=== PATIENT | female | born 1945 | race Hispanic/Latino ===

== ENCOUNTER 2024-03-13 00:47 | Inpatient (IN) | payer OTHER ==
[2024-03-13] MEDS ORDERED: NA CHLORIDE 0.9% 1,000 ML ONE (00:55)
[2024-03-13] MEDS ORDERED: DIPHENHYDRAMINE 50 MG/ML VIAL ONE (00:55)
[2024-03-13] MEDS ORDERED: METOCLOPRAMIDE 10 MG/2mL INJ ONE (00:55)
[2024-03-13 01:35] LABS: Absolute Basophils 0.1 K/uL (0-0.5); Absolute Lymphocytes (CBC) 0.8 K/uL (0.7-4.9); Absolute Monocytes 0.5 K/uL (0.1-1.3); Absolute Neutrophil 3.9 K/uL (1.8-8.0); Basophils % 2.3 % (0-1.3); Eosinophils % 0.3 % (0-4.4); Hematocrit 35.7 % (36.0-45.0); Hemoglobin 12.2 g/dL (12.0-15.0); MCH 32.3 pg (27.0-35.0); MCV 94.8 fL (80-100); MPV 8.2 fL (7.6-11.3); Monocytes % 9.9 % (3.3-12.3); Neutrophils % 72.5 % (41.7-73.7); Nucleated Red Blood Cells % 0.1 % (0-0); Platelets 210 thou/uL (152-406); RBC Red Blood Cell Count 3.77 M/uL (3.86-4.86); Red Cell Distribution Width 13.5 % (12.1-15.2)
[2024-03-13 01:36] LABS: Anion Gap 12.7 mEq/L (5.0-15.0); Potassium 3.7 mEq/L (3.5-5.1)
--- NOTE | 2024-03-13 02:15 | ER ---
Nurse's Notes [facility] Name: Carmella Brandt Age: 78 yrs Sex: Female : 1945 Arrival Date: 03/13/2024 Time: 00:47 Bed 6 Private MD: Diagnosis: Hypo-osmolality and hyponatremia Presentation: 03/13 00:48 Chief complaint: Patient states: i have had a bad headache since yesterday and now i bm8 feel like throwing up. Coronavirus screen: Vaccine status: At this time, the client does not indicate any symptoms associated with coronavirus-19. Ebola Screen: Patient negative for fever greater than or equal to 101.5 degrees Fahrenheit, and additional compatible Ebola Virus Disease symptoms Patient denies exposure to infectious person. Patient denies travel to an Ebola-affected area in the 21 days before illness onset. No symptoms or risks identified at this time. Initial Sepsis Screen: Does the patient meet any 2 criteria? No. Patient's initial sepsis screen is negative. Does the patient have a suspected source of infection? No. Patient's initial sepsis screen is negative. Risk Assessment: Do you want to hurt yourself or someone else? Patient reports no desire to harm self or others. 00:48 Method Of Arrival: EMS: [facility] bm8 00:48 Onset of symptoms was March 11, 2024. bm8 00:48 Acuity: DAVID 3 bm8 Triage Assessment: 01:07 Headache History: The patient has had previous headaches and this one is similar to bm8 previous episodes. General: Appears in no apparent distress. uncomfortable, Behavior is calm, cooperative, appropriate for age. Pain: Complains of pain in HEAD Pain does not radiate. Pain currently is 8 out of 10 on a pain scale. Quality of pain is described as aching, Pain began 1 day ago. EENT: No deficits noted. No signs and/or symptoms were reported regarding the EENT system. Neuro: No deficits noted. Level of Consciousness is awake, alert, obeys commands, Oriented to person, place, time, situation, Appropriate for age Reports headache in entire. Cardiovascular: Denies chest pain, Capillary refill < 3 seconds in bilateral fingers toes Patient's skin is warm and dry. Respiratory: Airway is patent Respiratory effort is even, unlabored, Respiratory pattern is regular, symmetrical. GI: Reports nausea, vomiting. : No signs and/or symptoms were reported regarding the genitourinary system. Derm: No signs and/or symptoms reported regarding the dermatologic system. Musculoskeletal: No signs and/or symptoms reported regarding the musculoskeletal system. 04:03 Pain: Also complains of nausea. bm8 Historical: - Allergies: :07 No Known Allergies; bm8 - Home Meds: : Unable to obtain [Active]; bm8 - PMHx: : HTN; HLD; bm8 - PSHx: : Unable to Obtain; bm8 - Immunization history:: Adult Immunizations up to date. - Infectious Disease History:: Denies. - Social history:: Smoking status: Patient denies any tobacco usage or history of. Screenin:10 [place] ED Fall Risk Assessment (Adult) History of falling in the last 3 months, bm8 including since admission No falls in past 3 months (0 pts) Confusion or Disorientation No (0 pts) Intoxicated or Sedated No (0 pts) Impaired Gait No (0 pts) Mobility Assist Device Used No (0 pt) Altered Elimination No (0 pt) Score/Fall Risk Level 0 - 2 = Low Risk Oriented to surroundings, Maintained a safe environment, Educated pt \T\ family on fall prevention, incl call for assistance when getting out of bed, Assessed \T\ reinforced patient's understanding of fall precautions, Hourly rounding (assess needs \T\ fall precautionary measures) done, Used ambulatory aids as needed (educated on \T\ assisted with), Used gait belt as appropriate. Abuse screen: Denies threats or abuse. Nutritional screening: No deficits noted. Tuberculosis screening: No symptoms or risk factors identified. Assessment: :10 Reassessment: SEE TRIAGE NOTE. bm8 01:58 Reassessment: Patient appears in no apparent distress at this time. Patient and/or bm8 family updated on plan of care and expected duration. Pain level reassessed. Patient is alert, oriented x 3, equal unlabored respirations, skin warm/dry/pink. Patient denies pain at this time. Patient states feeling better. Patient states symptoms have improved. Pain: Denies pain. Neuro: No deficits noted. Level of Consciousness is alert, obeys commands, Oriented to person, place, time, situation, Appropriate for age. Cardiovascular: Denies chest pain, Capillary refill < 3 seconds Patient's skin is warm and dry. Respiratory: Airway is patent Respiratory effort is even, unlabored, Respiratory pattern is regular, symmetrical. GI: Patient currently denies nausea, pain, vomiting. 04:01 Reassessment: No changes from previously documented assessment. Patient and/or family bm8 updated on plan of care and expected duration. Pain level reassessed. Patient is alert, oriented x 3, equal unlabored respirations, skin warm/dry/pink. Patient denies pain at this time. Patient states feeling better. Patient states symptoms have improved. 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 bm8 Vital Signs: 00:48 BP 150 / 73; Pulse 90; Resp 18; Temp 98.3; Pulse Ox 95% ; Weight 81.65 kg; Height 5 ft. bm8 0 in. ; Pain 8/10; 01:59 BP 134 / 72; Pulse 90; Resp 20; Temp 98.3; Pulse Ox 95% ; Pain 0/10; bm8 04:01 BP 111 / 74; Pulse 84; Resp 20; Temp 98.3; Pulse Ox 96% ; Pain 0/10; bm8 00:48 Body Mass Index 35.15 (81.65 kg, 152.4 cm) bm8 00:48 Pain Scale: Adult bm8 01:59 Pain Scale: Adult bm8 04:01 Pain Scale: Adult bm8 [place] Coma Score: 01:10 Eye Response: spontaneous(4). Motor Response: obeys commands(6). Verbal Response: bm8 oriented(5). Total: 15. 01:59 Eye Response: spontaneous(4). Motor Response: obeys commands(6). Verbal Response: bm8 oriented(5). Total: 15. 04:01 Eye Response: spontaneous(4). Motor Response: obeys commands(6). Verbal Response: bm8 oriented(5). Total: 15. ED Course: 00:48 Patient arrived in ED. ec2 00:48 Migel Navas MD is Attending Physician. ec2 00:52 Calderon Ho, RN is Primary Nurse. bm8 01:07 Triage completed. bm8 01:07 Arm band placed on right wrist. bm8 01:10 Patient has correct armband on for positive identification. Bed in low position. Call bm8 light in reach. Side rails up X2. Adult w/ patient. Client placed on continuous cardiac and pulse oximetry monitoring. NIBP monitoring applied. quality assurance monitor final on. Pulse ox on. NIBP on. Door closed. Noise minimized. Warm blanket given. Pillow given. Verbal reassurance given. Head of bed elevated. 01:10 No provider procedures requiring assistance completed. Initial lab(s) drawn, by ms, bm8 sent to lab. EKG done, by ED staff, reviewed by Migel Navas MD. Inserted saline lock: 20 gauge in left antecubital area, using aseptic technique. Blood collected. Flushed with 10 mL NS. Patient maintains SpO2 saturation greater than 95% on room air. 01:22 CT Head Brain wo Cont In Process Unspecified. EDMS 02:15 Prince Hardwick MD is Hospitalizing Provider. ec2 03:01 Warm blanket given. oe 04:01 Provided Education on: NEED FOR ADMISSION. bm8 04:01 Patient admitted, IV remains in place. bm8 Administered Medications: 01:03 Drug: NS 0.9% IV 1000 ml IV at 1 bolus Per protocol; 1000 mL bolus Route: IV; Rate: 1 bm8 bolus; Site: left antecubital; 01:58 Follow up: Response: No adverse reaction; IV Status: Completed infusion; IV Intake: bm8 1000ml 01:03 Drug: metoCLOPramide IVP 10 mg IVP once; over 1 to 2 minutes Route: IVP; Site: left bm8 antecubital; 01:57 Follow up: Response: No adverse reaction bm8 01:03 Drug: diphenhydrAMINE IVP 25 mg IVP once Route: IVP; Site: left antecubital; bm8 01:57 Follow up: Response: No adverse reaction bm8 Medication: 01:10 VIS not applicable for this client. bm8 Intake: 01:58 IV: 1000ml; Total: 1000ml. bm8 Outcome: 02:15 Decision to Hospitalize by Provider. ec2 04:01 Admitted to Med/surg accompanied by nurse, via wheelchair, room 217, bm8 04:01 Condition: stable 04:01 Instructed on the need for admit, Demonstrated understanding of instructions, follow-up care, 04:37 Patient left the ED. bm8 Signatures: Dispatcher [employer] EDID Manny Mathis oe Navas, Migel, MD MD ec2 Calderon Ho, RN RN bm8
--- NOTE | 2024-03-13 02:15 | EDPHYS ---
Physician Documentation [facility] Name: Carmella Brandt Age: 78 yrs Sex: Female : 1945 Arrival Date: 03/13/2024 Time: 00:47 Bed 6 Private MD: ED Physician Migel Navas HPI: 03/13 00:52 This 78 yrs old Female presents to ER via Unassigned with complaints of ec2 headache. 00:52 Patient arrives today for evaluation of a headache. Patient reports that she has been ec2 experiencing headache ongoing for the past day. Patient reports associated nausea and a bout of vomiting as well. Has not taken any medications for symptoms. Does suffer from migraines. Patient reports that she does not take any medications for her headaches. Denies any falls injuries or trauma.. Historical: - Allergies: 01:07 No Known Allergies; bm8 - Home Meds: 01:07 Unable to obtain [Active]; bm8 - PMHx: 01:07 HTN; HLD; bm8 - PSHx: 01:07 Unable to Obtain; bm8 - Immunization history:: Adult Immunizations up to date. - Infectious Disease History:: Denies. - Social history:: Smoking status: Patient denies any tobacco usage or history of. ROS: 00:52 Constitutional: as per hpi ec2 Exam: 00:52 Constitutional: GEN: NAD Head: atraumatic Eyes: EOMI Ears: External ears are ec2 normal. CV: regular rate LUNGS: no respiratory distress ABD: non-distended SKIN: no evidence of rashes MSK: no evidence of trauma. Neuro: Cranial nerves II through XII intact, strength intact all 4 extremities. 01:48 ECG was reviewed by the Attending Physician. ec2 Vital Signs: 00:48 BP 150 / 73; Pulse 90; Resp 18; Temp 98.3; Pulse Ox 95% ; Weight 81.65 kg; Height 5 ft. bm8 0 in. ; Pain 8/10; 01:59 BP 134 / 72; Pulse 90; Resp 20; Temp 98.3; Pulse Ox 95% ; Pain 0/10; bm8 04:01 BP 111 / 74; Pulse 84; Resp 20; Temp 98.3; Pulse Ox 96% ; Pain 0/10; bm8 00:48 Body Mass Index 35.15 (81.65 kg, 152.4 cm) bm8 00:48 Pain Scale: Adult bm8 01:59 Pain Scale: Adult bm8 04:01 Pain Scale: Adult bm8 [place] Coma Score: 01:10 Eye Response: spontaneous(4). Motor Response: obeys commands(6). Verbal Response: bm8 oriented(5). Total: 15. 01:59 Eye Response: spontaneous(4). Motor Response: obeys commands(6). Verbal Response: bm8 oriented(5). Total: 15. 04:01 Eye Response: spontaneous(4). Motor Response: obeys commands(6). Verbal Response: bm8 oriented(5). Total: 15. MDM: 00:48 Patient medically screened. ec2 00:52 Data reviewed: vital signs. ED course: Patient arrives today for evaluation of a ec2 headache. Examination remarkable for well-appearing nontoxic individuals otherwise in no acute distress with an intact neurologic examination. Will obtain lab work, CT imaging and treat the patient symptoms. Differential includes intracranial mass, migraine, nonspecific headache syndrome. 01:03 ED course: EKG independently reviewed and interpreted by me, shows normal sinus rhythm, ec2 rate of 86, no acute ST segment elevations, intervals are nonconcerning.. 01:42 ED course: CBC reassuring.Metabolic profile shows slight hyponatremia with a sodium of ec2 126. Troponin within normal ranges. . 01:48 ED course: CT scan of the head shows no acute intracranial abnormality.. ec2 02:14 ED course: On reassessment patient with improvement in her headache however he does ec2 complain of dizziness, on ambulation she is little unsteady in her gait. Patient is typically stable per family. I will admit for symptomatic hyponatremia. Discussed case with hospitalist, pending admission.. 03/13 00:50 Order name: Basic Metabolic Panel; Complete Time: 01:41 ec2 03/13 00:50 Order name: CBC with Diff; Complete Time: 01:42 ec2 03/13 00:50 Order name: Troponin HS; Complete Time: 01:41 ec2 03/13 01:50 Order name: BMP ec2 03/13 02:38 Order name: Osmolality, Serum EDMS 03/13 02:38 Order name: Osmolality, Urine EDMS 03/13 02:38 Order name: UR SODIUM EDMS 03/13 02:41 Order name: Thyroid Stimulating Hormone EDMS 03/13 03:28 Order name: NT PRO-BNP EDMS 03/13 00:50 Order name: CT Head Brain wo Cont ec2 03/13 00:50 Order name: EKG; Complete Time: 00:50 ec2 03/13 00:50 Order name: Cardiac monitoring; Complete Time: 01:03 ec2 03/13 00:50 Order name: EKG - Nurse/Tech; Complete Time: 01:03 ec2 03/13 00:50 Order name: IV Saline Lock; Complete Time: 01:03 ec2 03/13 00:50 Order name: Labs collected and sent; Complete Time: 01:03 ec2 03/13 00:50 Order name: O2 Per Protocol; Complete Time: 01:03 ec2 03/13 00:50 Order name: O2 Sat Monitoring; Complete Time: 01:03 ec2 03/13 01:50 Order name: Misc. Order: repeat bmp; Complete Time: 01:57 ec2 Administered Medications: 01:03 Drug: NS 0.9% IV 1000 ml IV at 1 bolus Per protocol; 1000 mL bolus Route: IV; Rate: 1 bm8 bolus; Site: left antecubital; 01:58 Follow up: Response: No adverse reaction; IV Status: Completed infusion; IV Intake: bm8 1000ml 01:03 Drug: metoCLOPramide IVP 10 mg IVP once; over 1 to 2 minutes Route: IVP; Site: left bm8 antecubital; 01:57 Follow up: Response: No adverse reaction bm8 01:03 Drug: diphenhydrAMINE IVP 25 mg IVP once Route: IVP; Site: left antecubital; bm8 01:57 Follow up: Response: No adverse reaction bm8 Disposition Summary: 03/13/24 02:15 Hospitalization Ordered Notes: Hospitalization Status: Inpatient Admission ec2 Provider: Prince Mulu ecAna M Location: Telemetry/MedSurg (Inpatient) ec2 Condition: Stable ec2 Problem: new ec2 Symptoms: have improved ec2 Bed/Room Type: Standard ec2 Room Assignment: 217(03/13/24 03:49) rv1 Diagnosis - Hypo-osmolality and hyponatremia ec2 Forms: - Medication Reconciliation Form ec2 - SBAR form ec2 - Leadership Thank You Letter ec2 Signatures: Dispatcher [employer] JOSE EDUARDO Zarina Nix rv1 Migel Navas MD MD ec2 Calderon Ho RN RN bm8 Corrections: (The following items were deleted from the chart) 02:39 02:39 Thyroid Stimulating Hormone ordered. JOSE EDUARDO WHITT 03:49 02:15 ec2 rv1
[2024-03-13 02:30] LABS: Anion Gap 10.7 mEq/L (5.0-15.0); Potassium 3.7 mEq/L (3.5-5.1)
[2024-03-13 03:07] LABS: Thyroid Stimulating Hormone 1.64 uIU/mL (0.358-3.740)
--- NOTE | 2024-03-13 03:09 | P.HP ---
Certification for Inpatient Patient admitted to: Observation With expected LOS: <2 Midnights Practitioner: I am a practitioner with admitting privileges, knowledge of patient current condition, hospital course, and medical plan of care. Services: Services provided to patient in accordance with Admission requirements found in Title 42 Section 412.3 of the Code of Federal Regulations Patient History Date of Service: 03/13/24 Reason for admission: Dizziness History of Present Illness: Patient is a 78-year-old Marshallese-speaking female with a past medical history of type 2 diabetes mellitus, hypothyroidism and hypertension. She presented to the ER accompanied by family with chief complaints of dizziness ongoing for some time. Patient is stating that she is also having headache as well. She was found to be hyponatremic with a sodium of 126 in the ER. Review of her medications was done by me. Patient takes lisinopril and metoprolol for her hypertension. No diuretics including HCTZ. Patient is a poor historian even with language services. Physical Examination - Physical Exam General: Obese, Other (Frail) HEENT: Atraumatic, Normocephalic Respiratory: Other (Breathing is not labored.) Cardiovascular: No edema Neurological: Normal speech - Studies Laboratory Data (last 24 hrs) 03/13/24 03/13/24 03/13/24 01:54 00:52 00:52 WBC 5.40 Hgb 12.2 Hct 35.7 L Plt Count 210 Sodium 126 L 126 L Potassium 3.7 3.7 BUN 8 9 Creatinine 0.65 0.70 Glucose 163 H 163 H Assessment and Plan - Problems (Diagnosis) (1) Hyponatremia Current Visit: Yes Status: Acute (2) Dizziness Current Visit: Yes Status: Acute (3) Type II diabetes mellitus Current Visit: Yes Status: Acute (4) Hypertension Current Visit: Yes Status: Acute - Plan Assessment Patient is a 78-year-old Marshallese-speaking female with past medical history of hypothyroidism, type 2 diabetes mellitus and hypertension. She presented to the ER complaining of ongoing dizziness and headache for some time. Workup in the ER was only remarkable for sodium of 126. The rest of her blood work was unremarkable. Hyponatremia Dizziness Hypothyroidism Type 2 diabetes mellitus Hypertension Plan: Will admit under observation Check for urine sodium, urine osmolality and serum osmolality Fluid restriction, trend sodium Resume home meds upon reconciliation Patient is full code - Advance Directives Does patient have a Living Will: No Does patient have a Durable POA for Healthcare: No
[2024-03-13 05:18] VITALS: BMI 35.1
[2024-03-13 05:30] VITALS: O2SAT 96
[2024-03-13 06:56] LABS: Anion Gap 11.9 mEq/L (5.0-15.0); Potassium 3.9 mEq/L (3.5-5.1)
[2024-03-13] MEDS: METOPROLOL XL 25 MG TAB PO SCH (08:59)
[2024-03-13] MEDS: lisinopriL 20 MG TAB PO SCH (09:00)
[2024-03-13] MEDS: LEVOTHYROXINE SOD 0.05 MG TABLET PO SCH (09:00)
--- NOTE | 2024-03-13 10:04 | RAD REPORT ---
EXAM DESCRIPTION: CT - Head Brain Wo Cont - 03/13/2024 7:08 am CLINICAL HISTORY: HEADACHE COMPARISON: None Available. TECHNIQUE: Contiguous axial images of the brain were obtained without the administration of intraven ous contrast.This exam was performed according to our departmental dose-optimization program, which i ncludes automated exposure control, adjustment of the mA and/or kV according to patient size and/or u se of iterative reconstruction technique. FINDINGS: There is no acute intracranial hemorrhage or mass effect. There is atherosclerosis. Areas of low attenuation in the periventricular and subcortical white matter are nonspecific but suggestive of small vessel disease. There is generalized atrophy. Ventricular system is within normal limits. T here is adequate castillo-white matter differentiation. There is no skull fracture. Mucoperiosteal thicke echo of the maxillary sinuses compatible with chronic sinusitis changes. IMPRESSION: No acute intracranial abnormalities. Electronically signed by: Michael Duran MD 03/13/2024 01:43 AM CDT RP Due to temporary technical issues with the PACS/Fluency reporting system, reports are being signed by the in house radiologists without review as a courtesy to insure prompt reporting. The interpreting radiologist is fully responsible for the content of the report.
--- NOTE | 2024-03-13 12:35 | EKG ---
Test Date: 2024-03-13 Test Time: 00:59:56 [employer] Mill Operator: DARIEL MEASUREMENT RESULTS: Intervals: Rate: 86 DC: 166 QRSD: 96 QT: 360 QTc: 430 [place]: P: 61 DC: 166 QRS: -42 T: 45 INTERPRETIVE STATEMENTS: Normal sinus rhythm Left axis deviation Abnormal ECG No previous ECG available for comparison Electronically Signed On 03-13-24 12:35:08 CDT by Jesse Ya
[2024-03-13] MEDS: NA CHLORIDE 0.9% 1,000 ML IV SCH (13:08)
--- NOTE | 2024-03-13 13:11 | RAD REPORT ---
EXAM DESCRIPTION: RAD - Chest Single View - 03/13/2024 1:02 pm CLINICAL HISTORY: hyponatremia Chest pain. COMPARISON: <Comparisons> FINDINGS: Portable technique limits examination quality. Mild pulmonary edema. The heart is mildly enlarged. Left lateral chest wall shows some bony hypertrop hy. This is of unclear etiology. Recommend CT chest for further evaluation.
[2024-03-13 16:59] LABS: Anion Gap 7.6 mEq/L (5.0-15.0); Potassium 3.6 mEq/L (3.5-5.1)
[2024-03-13 20:49] VITALS: BP 106/56; TEMP 97.6
[2024-03-13] MEDS ORDERED: HOME MED 1 EA UNK (Simvastatin [Simvastatin] 20 MG Tablet) PO SCH (21:00)
[2024-03-13] MEDS ORDERED: ATORVASTATIN 10 MG TAB PO SCH (21:00)
--- NOTE | 2024-03-14 15:26 | P.DS ---
Admission Date: 03/13/24 Discharge Date: 03/13/24 Reason for Admission: Dizziness Brief History of Present Illness: Patient is a 78-year-old Jamaican-speaking female with a past medical history of type 2 diabetes mellitus, hypothyroidism and hypertension. She presented to the ER accompanied by family with chief complaints of dizziness ongoing for some time. Patient is stating that she is also having headache as well. She was found to be hyponatremic with a sodium of 126 in the ER. Review of her medications was done by me. Patient takes lisinopril and metoprolol for her hypertension. No diuretics including HCTZ. Patient is a poor historian even with language services. Physical Exam General: Obese, Other (Frail) HEENT: Atraumatic, Normocephalic Respiratory: Other (Breathing is not labored.) Cardiovascular: No edema Neurological: Normal speech Hospital Course: 78-year-old Jamaican-speaking female with a past medical history of type 2 diabetes mellitus, hypothyroidism and hypertension. She presented to the ER accompanied by family with chief complaints of dizziness ongoing for some time. She was noted to have hyponatremia, dizziness, sodium was 126, treated with normal saline. Condition improved with IV fluids, stable to discharge home, follow-up with primary care 1 to 2 days. Assessment Hyponatremia improved with IV fluids, Dizziness, HTN prn antihypertensives given CT of the head IMPRESSION: No acute intracranial abnormalities. Mild pulmonary edema. The heart is mildly enlarged. Left lateral chest wall shows some bony hypertrophy. Discharge medications cefdinir, prednisone, sodium chloride tablet Continue home medicines as previously prescribed GOAL: Clear understanding of disease process INSTRUCTIONS: Physician Discharge Instructions: -Follow-up with PCP in 1 to 2 weeks -Please call Dr. Oliveira at [phone] if any questions regarding hospital stay -Please call nursing station at [phone] if any nursing or medication questions -Return to the emergency room if symptoms worsen Diet: ADA, low sodium Activity: Fall precautions <Neeta Davies - Last Filed: 03/14/24 15:33> Admission Date: 03/13/24 Discharge Date: 03/13/24 Hospital Course: Chart has been reviewed. Events of the last 24 hours have been noted. Case discussed with DENIS. I performed a substantial part of the MDM during this patient's care today. I personally made or approved the documented management plan and acknowledge its risk of complications. I agree with the findings and documentation provided in the DENIS's notes Patient's clinical symptoms have improved. Patient is doing much better at this time and will discharge home with outpatient follow-up. <Kathy Oliveira - Last Filed: 03/23/24 00:46> Disposition: ROUTINE DISCHARGE Discharge Condition: GOOD Vital Signs/Physical Exam: Temp Pulse Resp BP Pulse Ox 97.6 F 69 15 106/56 L 97 03/13/24 20:00 03/13/24 20:00 03/13/24 20:00 03/13/24 20:00 03/13/24 20:00 Laboratory Data at Discharge: WBC 5.40 thou/uL (4.3-10.9) 03/13/24 00:52 Hgb 12.2 g/dL (12.0-15.0) 03/13/24 00:52 Hct 35.7 % (36.0-45.0) L 03/13/24 00:52 Plt Count 210 thou/uL (152-406) 03/13/24 00:52 Sodium Cancelled 03/13/24 22:00 Potassium Cancelled 03/13/24 22:00 BUN Cancelled 03/13/24 22:00 Creatinine Cancelled 03/13/24 22:00 Glucose Cancelled 03/13/24 22:00 <Neeta Davies - Last Filed: 03/14/24 15:33> Vital Signs/Physical Exam: Temp Pulse Resp BP Pulse Ox 97.6 F 69 15 106/56 L 97 03/13/24 20:00 03/13/24 20:00 03/13/24 20:00 03/13/24 20:00 03/13/24 20:00 Laboratory Data at Discharge: WBC 5.40 thou/uL (4.3-10.9) 03/13/24 00:52 Hgb 12.2 g/dL (12.0-15.0) 03/13/24 00:52 Hct 35.7 % (36.0-45.0) L 03/13/24 00:52 Plt Count 210 thou/uL (152-406) 03/13/24 00:52 Sodium Cancelled 03/13/24 22:00 Potassium Cancelled 03/13/24 22:00 BUN Cancelled 03/13/24 22:00 Creatinine Cancelled 03/13/24 22:00 Glucose Cancelled 03/13/24 22:00 <Kathy Oliveira - Last Filed: 03/23/24 00:46> Diet: Regular Activity: Fall precautions Time spent managing pt's care (in minutes): 55 <Neeta Davies - Last Filed: 03/14/24 15:33> <Kathy Oliveira - Last Filed: 03/23/24 00:46> Home Medications: Cefdinir [Cefdinir*] 300 mg PO BID #10 cap 03/13/24 Levothyroxine Sodium 50 mcg PO DAILY 03/13/24 Metformin HCl 850 mg PO DAILY 03/13/24 Metoprolol Succinate [Toprol Xl*] 25 mg PO DAILY 03/13/24 Simvastatin 20 mg PO BEDTIME 03/13/24 Sodium Chloride Tab [Sodium Chloride*] 1 gm PO BID #60 tab 03/13/24 predniSONE [Deltasone] 20 mg PO DAILY #5 tab 03/13/24 New Medications: Cefdinir [Cefdinir*] 300 mg PO BID #10 cap predniSONE [Deltasone] 20 mg PO DAILY #5 tab Sodium Chloride Tab [Sodium Chloride*] 1 gm PO BID #60 tab Physician Discharge Instructions: -DC IV and DC home -Follow-up with PCP in 1 to 2 weeks -Please call Dr. Oliveira at [phone] if any questions regarding hospital stay -Please call nursing station at [phone] if any nursing or medication questions -Return to the emergency room if symptoms worsen Followup: OOT,OOT [Primary Care Provider] -
== END 2024-03-13 20:36 | disposition home or self-care (01) | DRG 641 ==
LOC: ER 00:47 → ERHOLD 02:35 → 2ND 04:09
PROVIDERS: ADMIT Internal Medicine; ATTEND Hospitalist
DX: E87.1 Hypo-osmolality and hyponatremia (principal); I10 Essential (primary) hypertension; E78.5 Hyperlipidemia, unspecified; E03.9 Hypothyroidism, unspecified; E11.9 Type 2 diabetes mellitus without complications; Z79.52 Long term (current) use of systemic steroids; Z79.84 Long term (current) use of oral hypoglycemic drugs; Z79.890 Hormone replacement therapy; Z79.899 Other long term (current) drug therapy
CPT/HCPCS: 36415; 70450; 71045; 80048; 83880; 83930; 84443; 84484; 85025; 93005; 96361; 96374; 96375; 97161; 99285; J1200; J2765; J7030